=== PATIENT | female | born 1990 | race Caucasian/White ===

== ENCOUNTER 2016-07-19 08:06 | Emergency (ER) | payer OTHER ==
[2014-08-13 06:24] VITALS: BMI 41.1
[~2016-07-19 08:06] MED LIST: AUGMENTIN 875-11 TAB PO; PRENAVITE1 TAB PO; TAMIFLU75 MG PO; TYLENOL W/CODEI1 TAB PO
[2016-07-19 08:56] LABS: APPEARANCE CLOUDY (CLEAR); BILIRUBIN NEGATIVE (NEGATIVE); COLOR YELLOW (YELLOW); GLUCOSE NEGATIVE (NEGATIVE); KETONE NEGATIVE (NEGATIVE); LEUKOCYTE ESTERASE 1+ (NEGATIVE); NITRITE NEGATIVE (NEGATIVE); PROTEIN NEGATIVE (NEGATIVE); UROBILINOGEN NORMAL (NORMAL)
[2016-07-19 08:57] LABS: BACTERIA MODERATE /hpf (NONE SEEN); EPITHELIAL CELLS 0-5 /hpf (0-5)
[2016-07-19 09:49] LABS: HCG URINE NEGATIVE (NEGATIVE)
== END 2016-07-19 10:23 | disposition home or self-care (01) ==
LOC: D.ER 08:06
PROVIDERS: Emergency Medicine
DX: N39.0 Urinary tract infection, site not specified (principal)

== ENCOUNTER 2017-03-21 08:52 | Emergency (ER) | payer OTHER ==
[2014-08-13 06:24] VITALS: BMI 41.1
[2017-03-21 09:49] LABS: BASOPHILS 0 % (0-2); EOSINOPHILS 0.2 % (0-7); HEMATOCRIT 40.9 % (36.0-48.0); HEMOGLOBIN 13.1 g/dL (12-16); IMMATURE GRANULOCYTES 0.4 % (0-5); MCH 26.9 pg (26.0-34.0); MEAN PLATELET VOLUME 9.4 fL (7.4-10.4); MONOCYTES 2.7 % (2-11); NEUTROPHILS 87.7 % (40-80); PLATELET COUNT 261 10x3/uL (130-400); RBC 4.87 10x6/uL (4.00-5.40); RDW 13.5 % (11.5-14.5); WBC 8.2 10x3/uL (4.8-10.8)
[2017-03-21 10:02] LABS: HCG SERUM NEGATIVE (NEGATIVE)
[2017-03-21 10:03] LABS: ALBUMIN 3.8 g/dL (3.4-5.0); ALKALINE PHOSPHATASE 105 U/L (46-116); ALT (SGPT) 17 U/L (10-68); BILIRUBIN - TOTAL 0.84 mg/dL (0.2-1.3); CALC OSMOLALITY 275 mosm/kg (275-300); CALCIUM 8.8 mg/dL (8.5-10.1); CHLORIDE - SERUM 105 mmol/L (98-107); CREATININE - SERUM 0.5 mg/dL (0.6-1.3); GLUCOSE 95 mg/dL (74-106); LIPASE 68 U/L (73-393); PROTEIN - SERUM 7.7 g/dL (6.4-8.2); SODIUM 139 mmol/L (136-145); UREA NITROGEN 7 mg/dL (7-18); eGFR NON AFRICAN AMERICAN > 90 mL/min (90-120)
[2017-03-21 10:05] LABS: CARBON DIOXIDE 26.7 mmol/L (21.0-32.0)
[2017-03-21 10:13] LABS: APPEARANCE SLT CLOUDY (CLEAR); BACTERIA FEW /hpf (NONE SEEN); BILIRUBIN NEGATIVE (NEGATIVE); COLOR YELLOW (YELLOW); EPITHELIAL CELLS OCC /hpf (0-5); GLUCOSE NEGATIVE (NEGATIVE); KETONE NEGATIVE (NEGATIVE); MUCUS <1+ /lpf (NONE SEEN); NITRITE NEGATIVE (NEGATIVE); PROTEIN NEGATIVE (NEGATIVE); RED CELLS - URINE >50 /hpf (0-5); SPECIFIC GRAVITY 1.005 (1.005-1.020); WHITE CELLS - URINE 0-5 /hpf (0-5)
== END 2017-03-21 11:30 | disposition home or self-care (01) ==
LOC: D.ER 08:52
PROVIDERS: Emergency Medicine
DX: R19.7 Diarrhea, unspecified (principal); R11.10 Vomiting, unspecified; N39.0 Urinary tract infection, site not specified

== ENCOUNTER 2017-05-16 19:27 | Emergency (ER) | payer SELFPAY ==
[2014-08-13 06:24] VITALS: BMI 41.1
== END 2017-05-16 21:11 | disposition home or self-care (01) ==
LOC: D.ER 19:27
DX: J02.9 Acute pharyngitis, unspecified (principal); J30.9 Allergic rhinitis, unspecified

== ENCOUNTER 2017-07-25 21:01 | Emergency (ER) | payer MEDICAID ==
[2014-08-13 06:24] VITALS: BMI 41.1
== END 2017-07-26 00:54 | disposition home or self-care (01) ==
LOC: D.ER 21:01
DX: J06.9 Acute upper respiratory infection, unspecified (principal)

== ENCOUNTER 2017-10-24 13:12 | Emergency (ER) | payer SELFPAY ==
[~2017-10-24] VITALS: Ht 154.9 cm; Wt 90.9 kg
[2017-10-24 13:36] VITALS: Ht 154.9 cm; Wt 90.9 kg
[2017-10-24] MEDS ORDERED: FLUTICASONE PRO16 GM NASAL (15:21)
[2017-10-24] MEDS ORDERED: OMNICEF300 MG PO (15:21)
[2017-10-24 16:10] VITALS: BP 120/87
== END 2017-10-24 16:11 | disposition home or self-care (01) ==
LOC: D.ER 13:12
DX: J01.90 Acute sinusitis, unspecified (principal); R05 Cough; R09.89 Other specified symptoms and signs involving the circulatory and respiratory systems

== ENCOUNTER 2018-08-21 08:41 | Emergency (ER) | payer MEDICAID ==
[~2018-08-21] VITALS: Ht 154.9 cm; Wt 86.4 kg
[~2018-08-21 08:41] MED LIST changes: +FLUTICASONE PRO16 GM NASAL; +OMNICEF300 MG PO
[2018-08-21 08:47] VITALS: Ht 154.9 cm; Wt 86.4 kg
[2018-08-21] MEDS ORDERED: NAPROXEN250 MG PO (09:38)
[2018-08-21 10:10] VITALS: BP 122/89
== END 2018-08-21 10:05 | disposition home or self-care (01) ==
LOC: D.ER 08:41
DX: T75.4XXA Electrocution, initial encounter (principal); W86.8XXA Exposure to other electric current, initial encounter; Y93.89 Activity, other specified; Y92.020 Kitchen in mobile home as the place of occurrence of the external cause; M94.0 Chondrocostal junction syndrome [Tietze]

== ENCOUNTER 2019-02-18 16:59 | Emergency (ER) | payer SELFPAY ==
[~2019-02-18] VITALS: Ht 154.9 cm; Wt 90.9 kg
[~2019-02-18 16:59] MED LIST changes: +NAPROXEN250 MG PO
[2019-02-18 17:22] VITALS: Ht 154.9 cm; Wt 90.9 kg
[2019-02-18] MEDS ORDERED: BACLOFEN20 M1 PO (19:16)
[2019-02-18] MEDS ORDERED: VOLTAREN75 MG PO (19:16)
[2019-02-18 20:18] VITALS: BP 125/84
== END 2019-02-18 20:18 | disposition home or self-care (01) ==
LOC: D.ER 16:59
DX: S99.912A Unspecified injury of left ankle, initial encounter (principal); W19.XXXA Unspecified fall, initial encounter

== ENCOUNTER 2019-12-05 08:58 | Emergency (ER) | payer MEDICAID ==
[~2019-12-05] VITALS: Ht 154.9 cm; Wt 104.5 kg
[~2019-12-05 08:58] MED LIST changes: +BACLOFEN20 M1 PO; +VOLTAREN75 MG PO
[2019-12-05 09:01] VITALS: Ht 154.9 cm; Wt 104.5 kg
[2019-12-05] MEDS ORDERED: SEROQUEL25 MG PO (09:03)
[2019-12-05] MEDS ORDERED: TRAZODONE HCL150 MG PO (09:04)
[2019-12-05 09:23] LABS: BASOPHILS 0.2 % (0-2); EOSINOPHILS 0.5 % (0-7); HEMATOCRIT 42.7 % (36.0-48.0); HEMOGLOBIN 13.4 g/dL (12-16); IMMATURE GRANULOCYTES 0.4 % (0-5); LYMPHOCYTES 19.1 % (15-50); MCHC 31.4 g/dL (31.0-37.0); MCV 82.9 fL (80.0-100.0); MONOCYTES 8.7 % (2-11); NEUTROPHILS 71.1 % (40-80); PLATELET COUNT 311 10x3/uL (130-400); RBC 5.15 10x6/uL (4.00-5.40); WBC 9.6 10x3/uL (4.8-10.8)
[2019-12-05 09:31] LABS: APTT 29.5 SECONDS (22.8-39.4); INR 0.92 (0.85-1.17); PROTIME 12.4 SECONDS (11.6-15.0)
[2019-12-05 09:32] LABS: CALC OSMOLALITY 267 mosm/kg (275-300); CALCIUM 9.8 mg/dL (8.5-10.1); CHLORIDE - SERUM 102 mmol/L (98-107); CREATININE - SERUM 0.9 mg/dL (0.6-1.3); GLUCOSE 96 mg/dL (74-106); POTASSIUM - SERUM 3.5 mmol/L (3.5-5.1); SODIUM 134 mmol/L (136-145); UREA NITROGEN 12 mg/dL (7-18); eGFR NON AFRICAN AMERICAN 78 mL/min (90-120)
[2019-12-05 09:33] LABS: D-DIMER-QUANTITATIVE < 0.27 ug/mLFEU (0.20-0.54)
[2019-12-05 09:48] LABS: ALBUMIN 4.1 g/dL (3.4-5.0); ALKALINE PHOSPHATASE 122 U/L (30-120); ALT (SGPT) 17 U/L (10-68); BILIRUBIN - TOTAL 1.19 mg/dL (0.2-1.3); CKMB 0.3 U/L (0.0-3.6); CREATINE KINASE 71 UL (21-215); MAGNESIUM - SERUM 2.1 mg/dL (1.8-2.4)
[2019-12-05 09:51] LABS: UDS - AMPHET POSITIVE QUAL (NEGATIVE); UDS - BARB NEGATIVE QUAL (NEGATIVE); UDS - BENZO POSITIVE QUAL (NEGATIVE); UDS - COCAINE NEGATIVE QUAL (NEGATIVE); UDS - OPIATE NEGATIVE QUAL (NEGATIVE); UDS - PCP NEGATIVE QUAL (NEGATIVE); UDS - THC POSITIVE QUAL (NEGATIVE)
[2019-12-05 09:56] LABS: BILIRUBIN NEGATIVE (NEGATIVE); GLUCOSE NEGATIVE (NEGATIVE); KETONE NEGATIVE (NEGATIVE); NITRITE NEGATIVE (NEGATIVE); SPECIFIC GRAVITY 1.015 (1.005-1.020); UROBILINOGEN NORMAL (NORMAL)
[2019-12-05 09:58] LABS: BACTERIA MANY /hpf (NEGATIVE); RED CELLS - URINE 0-5 /hpf (0-5); WHITE CELLS - URINE 0-5 /hpf (NEGATIVE)
[2019-12-05 10:00] LABS: TROPONIN-I < 0.017 ng/mL (0.000-0.060)
[2019-12-05 11:33] VITALS: BP 134/93
== END 2019-12-05 11:34 | disposition home or self-care (01) ==
LOC: D.ER 08:58
PROVIDERS: Family Medicine
DX: F41.9 Anxiety disorder, unspecified (principal); R07.9 Chest pain, unspecified; R30.0 Dysuria; F19.10 Other psychoactive substance abuse, uncomplicated